=== PATIENT | male | born 1995 | race African-American/Black ===

== ENCOUNTER 2020-02-15 02:08 | Emergency (ER) | payer MEDICAID ==
[~2020-02-15] VITALS: Ht 190.5 cm; Wt 90.7 kg
[2020-02-15 02:09] VITALS: Ht 190.5 cm; Wt 90.7 kg
[2020-02-15 03:13] LABS: CALCIUM 9.1 mg/dL (8.5-10.1); CARBON DIOXIDE 31.5 mmol/L (21-32); CREATININE SERUM 1.6 mg/dL (0.7-1.3); POTASSIUM SERUM 3.8 mmol/L (3.5-5.1)
[2020-02-15 03:15] LABS: BASOPHIL % 0.1 % (0-2); PLATELET COUNT 166 x10^3mcL (130-400); RED CELL DISTRIBUTION WIDTH 13.6 % (11.5-14.5)
[2020-02-15 03:20] LABS: AMPHETAMINE QUAL UR NONE DETECTED (See below)
[2020-02-15 03:23] LABS: ALBUMIN 2.9 g/dL (3.4-5.0)
[2020-02-15 05:07] VITALS: BP 103/57
== END 2020-02-15 05:07 | disposition home or self-care (01) ==
LOC: ED 02:08
PROVIDERS: Emergency Medicine
DX: R11.2 Nausea with vomiting, unspecified (principal); R19.7 Diarrhea, unspecified; J45.909 Unspecified asthma, uncomplicated
CPT/HCPCS: 36415; J1630; Q0162

== ENCOUNTER 2020-02-15 14:08 | Emergency (ER) | payer MEDICAID, SELFPAY ==
[~2020-02-15] VITALS: Ht 182.9 cm; Wt 86.2 kg
[2020-02-15 14:29] VITALS: Ht 182.9 cm; Wt 86.2 kg
[2020-02-15 15:27] LABS: RED CELL DISTRIBUTION WIDTH 14.2 % (11.5-14.5)
[2020-02-15 15:38] LABS: PLATELET COUNT 128 x10^3mcL (130-400)
[2020-02-15 16:13] LABS: CALCIUM 8.8 mg/dL (8.5-10.1); CARBON DIOXIDE 30.8 mmol/L (21-32); CHLORIDE SERUM 96 mmol/L (98-107); CREATININE SERUM 1.4 mg/dL (0.7-1.3); GFR1 > 60 mL/min; GLUCOSE SERUM 134 mg/dL (74-106); POTASSIUM SERUM 3.4 mmol/L (3.5-5.1); SODIUM SERUM 137 mmol/L (136-145)
[2020-02-15 16:24] LABS: LIPASE 28 IU/L (73-393)
[2020-02-15 16:25] LABS: ALKALINE PHOSPHATASE 126 U/L (46-116); ALT/SGPT 27 U/L (16-63); AST/SGOT 27 U/L (15-37); BILIRUBIN TOTAL 1.18 mg/dL (0.20-1.00); TOTAL PROTEIN, SERUM 7.7 g/dL (6.4-8.2)
[2020-02-15 16:31] LABS: ALBUMIN 2.6 g/dL (3.4-5.0)
[2020-02-15 16:34] LABS: BAND NEUTROPHIL 10 % (0-10); METAMYELOCTE 5 % (0-2); MONOCYTE 8 % (0-7); MYELOCYTE 1 % (0-2); PLATELET MORPHOLOGY LARGE PLATELET SEEN; SEGMENTED NEUTROPHILS 69 % (37-75)
[2020-02-15 16:35] LABS: rbc morphology (normal/abnorm) NORMAL (NORMAL)
[2020-02-15 17:06] VITALS: BP 110/70
[2020-02-15 17:49] LABS: microscopic required? YES; urine erythrocyte 1+ (NEGATIVE)
[2020-02-15 18:03] LABS: AMPHETAMINE QUAL UR NONE DETECTED (See below)
== END 2020-02-15 17:06 | disposition home or self-care (01) ==
LOC: ED 14:08
PROVIDERS: Emergency Medicine
DX: J18.9 Pneumonia, unspecified organism (principal); J45.909 Unspecified asthma, uncomplicated
CPT/HCPCS: C9113; J0456; J0696; J2405; J7030; J7050; J7060; Q0092; Q0162; U0002

== ENCOUNTER 2020-02-17 17:53 | Emergency (ER) | payer MEDICAID, SELFPAY ==
[~2020-02-17] VITALS: Ht 182.9 cm; Wt 90.7 kg
[2020-02-17 20:05] LABS: BASOPHIL % 0.2 % (0-2); PLATELET COUNT 190 x10^3mcL (130-400); RED CELL DISTRIBUTION WIDTH 14.2 % (11.5-14.5)
[2020-02-17 20:31] LABS: CALCIUM 8.8 mg/dL (8.5-10.1); CHLORIDE SERUM 98 mmol/L (98-107); CREATININE SERUM 1.1 mg/dL (0.7-1.3); GFR1 > 60 mL/min; GLUCOSE SERUM 126 mg/dL (74-106); POTASSIUM SERUM 3.2 mmol/L (3.5-5.1); SODIUM SERUM 137 mmol/L (136-145)
[2020-02-17 20:35] LABS: ALKALINE PHOSPHATASE 98 U/L (46-116); ALT/SGPT 35 U/L (16-63); AST/SGOT 26 U/L (15-37); BILIRUBIN TOTAL 0.84 mg/dL (0.20-1.00); LIPASE 42 IU/L (73-393); TOTAL PROTEIN, SERUM 7.9 g/dL (6.4-8.2)
[2020-02-17 20:36] LABS: ALBUMIN 2.3 g/dL (3.4-5.0)
[2020-02-17 21:39] VITALS: BP 119/68
== END 2020-02-17 21:39 | disposition home or self-care (01) ==
LOC: ED 17:53
PROVIDERS: Emergency Medicine
DX: J18.9 Pneumonia, unspecified organism (principal); K64.9 Unspecified hemorrhoids; R11.2 Nausea with vomiting, unspecified; J45.909 Unspecified asthma, uncomplicated
CPT/HCPCS: 36415; 87804; J2405; J7030; Q0092; Q0169

== ENCOUNTER 2020-04-22 13:00 | Emergency (ER) | payer MEDICAID ==
[~2020-04-22] VITALS: Ht 190.5 cm; Wt 90.7 kg
[2020-04-22 13:10] VITALS: BP 117/72; Ht 190.5 cm; Wt 90.7 kg
== END 2020-04-22 14:12 | disposition left against medical advice (07) ==
LOC: ED 13:00
DX: Z53.21 Procedure and treatment not carried out due to patient leaving prior to being seen by health care provider (principal)